=== PATIENT | female | born 1940 | race Caucasian/White ===

== ENCOUNTER 2018-09-10 15:52 | Emergency (ER) | payer OTHER, MEDICARE ==
[~2018-09-10] VITALS: Ht 167.6 cm; Wt 74.8 kg
[~2018-09-10 15:52] MED LIST: ALBU90OI INH; ASPI325 PO; ASPI81CH PO; ATOR10 PO; BLOOD PRESSURE MED; CITALOPRAM; EXEM25 PO; GLIM4; GLIP2.5ER PO; GLIPIZIDE; HYDACE5 PO; LEXAPRO; LISHYD1012 PO; MAGCHL64ER PO; METF500 PO; METFORMIN; ROPI.25 PO; ROPI1 PO; TRIAMTERENE; VIT1CAPS12 PO
--- NOTE | 2018-09-10 17:35 | NUR ---
Responded to trauma activation. Present at [facility] with [facility]ay[facility]. Spouse arrived via EMS. Stayed with him until family arrived. Provided calm presence to tearful family at bedside.
== END 2018-09-10 15:59 ==
LOC: ER 15:52 → EDBD 15:52 → ER 15:59
DX: Z04.1 Encounter for examination and observation following transport accident (principal); V69.59XA Passenger in heavy transport vehicle injured in collision with other motor vehicles in traffic accident, initial encounter
CPT/HCPCS: 99285